=== PATIENT | female | born 1945 | race Two or more races ===

== ENCOUNTER 2017-05-17 10:46 | Outpatient (CLI) | payer MEDICARE, MEDICAID | END 2017-05-17 23:59 | disposition home or self-care (01) | LOC: LAB 10:46 → RAD 23:59 | PROVIDERS: ATTEND Internal Medicine | DX: J90 Pleural effusion, not elsewhere classified (principal); J98.11 Atelectasis; I70.0 Atherosclerosis of aorta; I51.7 Cardiomegaly; R91.8 Other nonspecific abnormal finding of lung field; I31.3 Pericardial effusion (noninflammatory); C50.919 Malignant neoplasm of unspecified site of unspecified female breast | CPT/HCPCS: 71260; 74160; J7050; Q9967 ==